=== PATIENT | female | born 1990 | race Caucasian/White ===

== ENCOUNTER → 2018-01-13 | Outpatient (CLI) | payer BC | LOC: M PAIN 11:00 | DX: G50.1 Atypical facial pain (principal); G50.0 Trigeminal neuralgia; M54.2 Cervicalgia; M79.7 Fibromyalgia; K21.9 Gastro-esophageal reflux disease without esophagitis; Z79.899 Other long term (current) drug therapy; Z88.8 Allergy status to other drugs, medicaments and biological substances | CPT/HCPCS: G0463 ==